=== PATIENT | female | born 1995 | race Caucasian/White ===

== ENCOUNTER → 2020-10-25 | Outpatient (REF) | payer OTHER ==
[2020-10-25 13:27] LABS: HEMATOCRIT 44.3 % (36.0-47.0); HEMOGLOBIN 14.2 g/dl (12.0-15.5); MEAN CORPUSCULAR HEMOGLOBIN 27.8 pg (27.0-33.0); MEAN CORPUSCULAR HGB CONC 32.1 g/dl (32.0-36.5); MEAN CORPUSCULAR VOLUME 86.9 fl (80.0-96.0); PLATELET COUNT, AUTOMATED 358 10^3/uL (150-450); WHITE BLOOD COUNT 8.7 10^3/uL (4.0-10.0)
[2020-10-25 13:57] LABS: GLUCOSE CHALLENGE TEST 1 HOUR 98 MG/DL (LESS THAN 140)
[2020-10-25 14:49] LABS: CHLAMYDIA DNA AMPLIFICATION NEGATIVE (NEGATIVE); GC DNA AMPLIFICATION NEGATIVE (NEGATIVE); HEPATITIS C VIRUS ABY INDEX < 0.0 INDEX (<0.8)
[2020-10-25 14:50] LABS: HIV 1&2 SCREEN CENTAUR NEGATIVE (NEGATIVE)
[2020-10-25 15:36] LABS: HEMOGLOBIN A1c 4.8 %
== END ==
LOC: M PLALAB 08:50
PROVIDERS: ATTEND Advanced Practice Midwife
DX: Z36.89 Encounter for other specified antenatal screening (principal); Z3A.09 9 weeks gestation of pregnancy

== ENCOUNTER → 2020-11-20 | Outpatient (REF) | payer OTHER | LOC: M PLALAB 09:33 | PROVIDERS: ATTEND Obstetrics & Gynecology | DX: O99.211 Obesity complicating pregnancy, first trimester (principal); E66.9 Obesity, unspecified | CPT/HCPCS: 87086; G0463 ==

== ENCOUNTER → 2021-01-04 | Outpatient (CLI) | payer OTHER ==
--- NOTE | 2021-01-04 10:38 | REP ---
INDICATION: ANATOMY. COMPARISON: None. TECHNIQUE: Transabdominal obstetric sonography. FINDINGS: Scanning through the gravid uterus demonstrates a viable single intrauterine gestation in breech lie. motion is observed and heart rate is recorded at 163 beats per minute. A posterior placenta is seen, grade 1, without evidence of placenta previa. Closed cervical length is measured at 3.9 cm transabdominally. No extrauterine abnormality is observed. Amniotic fluid is subjectively normal. No abnormality is observed. The following anatomic structures are less than optimally seen due to position: Face and profile, kidneys, spine. The following additional anatomic structures are identified and felt to be unremarkable: cranium and intracranial contents, nose and lips, four-chamber heart with left and right ventricular outflow tract views, diaphragm, left-sided stomach, abdominal wall cord insertion, urinary bladder, upper and lower extremities, three-vessel cord.. Biometry chart: BPD 4.6 cm, 20 weeks 0 days Head circumference 17.2 cm, 19 weeks 5 days Abdominal circumference 15.1 cm, 20 weeks 2 days Femur length 2.9 cm, 18 weeks 6 days Humeral length 2.9 cm, 19 weeks 2 days HC AC ratio normal 1.14 Cephalic index normal 0.75 Estimated weight 307 g, 0 lb 10 oz, 18th percentile for 20 weeks 2 days IMPRESSION: Viable single intrauterine gestation at 19 weeks 5 days by today's composite sonographic criteria. MARTA by today's sonography May 26, 2021. No complication identified. Expected gestational age estimate based on known MARTA of May 22, 2021 is 20 weeks 2 days. spine face profile, and kidneys less than optimally seen. <Electronically signed by David Mcfarlane > 01/04/21 [id number]
== END ==
LOC: M WHC 08:30
PROVIDERS: ATTEND Obstetrics & Gynecology
DX: Z36.89 Encounter for other specified antenatal screening (principal); Z3A.20 20 weeks gestation of pregnancy

== ENCOUNTER → 2021-01-24 | Outpatient (REF) | payer OTHER | LOC: M PLALAB 11:50 | PROVIDERS: ATTEND Obstetrics & Gynecology | DX: Z34.82 Encounter for supervision of other normal pregnancy, second trimester (principal); Z3A.23 23 weeks gestation of pregnancy ==

== ENCOUNTER → 2021-02-07 | Outpatient (CLI) | payer OTHER ==
--- NOTE | 2021-02-07 14:47 | REP ---
INDICATION: F/U ANATOMY COMPARISON: 01/04/2021 TECHNIQUE: Transabdominal obstetrical ultrasound with color Doppler evaluation. FINDINGS: Examination demonstrates a single live intrauterine in cephalic posterior presentation. motion is identified by technologist. Placenta is noted and grade 1 without evidence for placenta previa or abruption. Amniotic fluid volume is normal. Cervix measures 3.7 cm in length and appears closed.. Selected gestational age: 25 weeks 1 day with MARTA 05/22/2021. Gestational age by current measurements 25 weeks 1 day with MARTA 05/22/2021. FHR equals 160 beats per minute. Estimated weight 759 grams (34thpercentile). Anatomical assessment demonstrates normal structures including cranium, choroid plexus, cavum, cerebellum/posterior fossa, lungs, four-chamber heart/ventricular outflow tracts, diaphragm, stomach, cord insertion/three-vessel cord, kidneys/bladder, spine, and extremities. Continued limited evaluation of the facial features. Remainder of the anatomical assessment is essentially complete and normal. IMPRESSION: Single live intrauterine in cephalic presentation demonstrating appropriate estimated weight and growth. Continued limited evaluation of the facial profile. Remainder of the anatomical assessment appears complete and normal. <Electronically signed by Martin Downs > 02/07/21 [id number]
== END ==
LOC: M WHC 13:33
PROVIDERS: ATTEND Obstetrics & Gynecology
DX: Z36.2 Encounter for other antenatal screening follow-up (principal); Z3A.25 25 weeks gestation of pregnancy

== ENCOUNTER → 2021-02-22 | Outpatient (CLI) | payer OTHER ==
[2021-02-22 17:12] LABS: HEMATOCRIT 38.9 % (36.0-47.0); HEMOGLOBIN 12.7 g/dl (12.0-15.5); MEAN CORPUSCULAR HEMOGLOBIN 28.8 pg (27.0-33.0); MEAN CORPUSCULAR HGB CONC 32.6 g/dl (32.0-36.5); MEAN CORPUSCULAR VOLUME 88.2 fl (80.0-96.0); PLATELET COUNT, AUTOMATED 362 10^3/uL (150-450); RED BLOOD COUNT 4.41 10^6/uL (4.00-5.40); WHITE BLOOD COUNT 12.1 10^3/uL (4.0-10.0)
== END ==
LOC: M PLALAB 13:34
PROVIDERS: ATTEND Obstetrics & Gynecology
DX: Z34.82 Encounter for supervision of other normal pregnancy, second trimester (principal); Z3A.23 23 weeks gestation of pregnancy
CPT/HCPCS: 36415; 82950; 85027; G0463

== ENCOUNTER → 2021-03-11 | Outpatient (CLI) | payer OTHER ==
--- NOTE | 2021-03-13 08:48 | REP ---
INDICATION: F/U ANATOMY COMPARISON: None. TECHNIQUE: Transabdominal obstetrical ultrasound with color Doppler evaluation. FINDINGS: Examination demonstrates a single live intrauterine in cephalic presentation. motion is identified by technologist. Placenta is noted posterior and grade 2 without evidence for placenta previa or abruption. Amniotic fluid volume is normal. Cervix measures 4.4 cm in length and appears closed.. Selected gestational age: 29 weeks 5 days with MARTA 05/22/2021. Gestational age by current measurements 30 weeks 5 days with MARTA 05/15/2021. FHR equals 160 beats per minute. Estimated weight 1568 grams (62ndpercentile). HOMA: 13.9 cm Umbilical artery SD ratio: 2.35 Anatomical assessment is limited due to positioning. IMPRESSION: Single live intrauterine in cephalic presentation demonstrating appropriate interval growth. While no gross abnormalities are identified, images of the face are again limited due to positioning. <Electronically signed by Martin Downs > 03/13/21 0870
== END ==
LOC: M WHC 14:32
PROVIDERS: ATTEND Advanced Practice Midwife
DX: Z34.82 Encounter for supervision of other normal pregnancy, second trimester (principal); Z36.89 Encounter for other specified antenatal screening; Z3A.29 29 weeks gestation of pregnancy

== ENCOUNTER → 2021-03-27 | Outpatient (CLI) | payer OTHER | LOC: M LAB 07:53 | PROVIDERS: ATTEND Obstetrics & Gynecology | DX: Z34.82 Encounter for supervision of other normal pregnancy, second trimester (principal) ==

== ENCOUNTER → 2021-04-23 | Outpatient (REF) | payer OTHER | LOC: M LAB REF 13:05 | PROVIDERS: ATTEND Specialist | DX: Z34.83 Encounter for supervision of other normal pregnancy, third trimester (principal) ==

== ENCOUNTER 2021-05-18 02:46 | Inpatient (IN) | payer OTHER ==
[2021-05-18] VITALS (34 sets, daily range): BP systolic 116–176; BP diastolic 56–102
[2021-05-18] MEDS ORDERED: LACTATED RINGER'S 1000 ML IV STA (03:42)
[2021-05-18] MEDS ORDERED: LIDOCAINE 1% MDV 20ML VIAL INFIL PRN (03:45)
[2021-05-18] MEDS ORDERED: OXYTOCIN DRIP 30 UNITS in IV 1 EA IV PRN (03:45)
--- OUTSIDE RECORDS SUMMARY | 2021-05-18 03:47 | CCD ---
Author Author [facility] Organization [facility] Address Unknown Phone Unavailable Care Team Providers Care Vp Lab Name Role Phone Jersey Bauer Unavailable PROBLEMS Type Condition ICD9-CM Code [id number] Code Onset Dates Condition S tatus W/U Status Risk SNOMED Code Notes Problem Obesity (BMI 30.0-34.9) E66.9 Active confirmed [id number] Problem Obesity E66.9 Active confirmed 804497218 Problem Supervision of other normal Z34.80 Ac tive confirm 467770640 Problem Obesity complicating in first trimester O99.211 Active confirmed Problem Obesity complicating in second trimester O99.212 Active confirmed [id number] ALLERGIES No Known Allergies ENCOUNTERS from 1997 to 2021-04-27 Encounter Location Date Provider Diagnosis [facility] [address] [place] [address] [place] [address] Apr, Jersey Bauer Encounter for superv ision of other normal in third trimester Z34.83 and 35 weeks gestation of Z3A.35 IMMUNIZATIONS Vaccine Route Administration Date Status TDAP 0.5mL Boostrix IM Intramuscular Apr 04, 2021 Administere d SOCIAL HISTORY Tobacco Use: Social History Observation Description Date Details (start date - stop date) Never Smoker Sex Assigned At : Social History Observation Description Sex Assigned At Unknown Alcohol Screening: Question Answer Notes Did you have a drink containing alcohol in the past year? No Points 0 Interpretation Negative Tobacco Use: Question Answer Notes Are you a: never smoker former vaper REASON FOR REFERRAL No Information VITAL SIGNS Weight 204.4 lbs Apr, Height 64 in Apr, BMI 35.085 kg/m2 Apr, Blood pressure systolic 122 mm Hg Apr, Blood pressure diastolic 72 mm Hg Apr, MEDICATIONS Medication SIG (Take, Route, Frequency, Duration) Notes Start Da te End Date Status 28-0.8 MG 1 tablet Orally Once a day Active PROCEDURES No Information RESULTS Component Value Reference Range GROUP B STREP CULTURE Reviewed date:04/26/2021 06:57:17 Interpretation: Performing Lab:[facility], [facility] [id number] , ,[id number] REASON FOR VISIT 2 WK PN MEDICAL (GENERAL) HISTORY Type Description Date Medical History activity induced asthma Hospitalization History rsv 1997 Goals Section No Information Health Concerns No Information MEDICAL EQUIPMENT No Information MENTAL STATUS No Information FUNCTIONAL STATUS No Information ASSESSMENTS Encounter Date Diagnosis Assessment Notes Treatment Notes Treatm ent Clinical Notes Apr, Encounter for supervision of other normal in third trimester (ICD-10 - Z34.83) Apr, 35 weeks gestation of (ICD-10 - Z3A.35 ) PLAN OF TREATMENT Next Appt Details Provider Name:Jersey Castro Juancarlos, 2021-04-29 09:45:00 AM, [address] [facility], , [place], [address], Insurance Providers Payer Name Payer Address Payer Phone Insured Name Patient Relati onship to Insured Coverage Start Date Coverage End Date [facility] [employer] [address] [place] [id number] SAM MARMOLEJO
--- OUTSIDE RECORDS SUMMARY | 2021-05-18 03:47 | CCD ---
Author Author [facility] Organization [facility] Address Unknown Phone Unavailable Care Team Providers Care Rn Hemodialysis Name Role Phone Laurel Bharti Unavailable PROBLEMS Type Condition ICD9-CM Code [id number]-WK Code Onset Dates Condition S tatus W/U Status Risk SNOMED Code Notes Problem Obesity (BMI 30.0-34.9) E66.9 Active confirmed [id number] Problem Obesity E66.9 Active confirmed 876812641 Problem Supervision of other normal Z34.80 Ac tive confirm 924119629 Problem Obesity complicating in first trimester O99.211 Active confirmed Problem Obesity complicating in second trimester O99.212 Active confirmed 703050529815 ALLERGIES No Known Allergies ENCOUNTERS from 1997 to 2021-04-05 Encounter Location Date Provider Diagnosis [facility] [address] [place] [address] [place] [address] Mar, Bharti Barragan Encounter for sup ervision of normal first in third trimester Z34.03 ; 33 weeks gestation of Z3A.33 and Encounter for immunization Z23 IMMUNIZATIONS Vaccine Route Administration Date Status TDAP [...] FOR REFERRAL No Information VITAL SIGNS Weight 202.6 lbs Mar, Height 64 in Mar, BMI 34.776 kg/m2 Mar, Blood pressure systolic 118 mm Hg Mar, Blood pressure diastolic 68 mm Hg Mar, MEDICATIONS Medication SIG (Take, Route, Frequency, Duration) Notes Start Da te End Date Status 28-0.8 MG 1 tablet Orally Once a day Active PROCEDURES from 1997 to 2021-04-05 Procedure Date Ordered Result Body Site Imm: Boostrix 0.5mL IM TDAP 2021-04-04 N/A RESULTS No Results REASON FOR VISIT 2 WK PN MEDICAL (GENERAL) HISTORY Type Description Date Medical History activity induced asthma Hospitalization History rsv 1997 Goals Section No Information Health Concerns No Information MEDICAL EQUIPMENT No Information MENTAL STATUS No Information FUNCTIONAL STATUS No Information ASSESSMENTS Encounter Date Diagnosis Assessment Notes Treatment Notes Treatm ent Clinical Notes Mar, 33 weeks gestation of (ICD-10 - Z3A.33 ) Mar, Encounter for supervision of normal first in third trimester (ICD-10 - Z34.03) Mar, Encounter for immunization (ICD-10 - Z23) PLAN OF TREATMENT Next Appt Details 2 Weeks Reason:- Routine follow up Provider Name:Jersey Bauer, 2021-04-22 01:00:00 PM, [address] [facility], , [place], [address], Follow Up:2 Weeks- Routine follow up Insurance Providers Payer Name Payer Address Payer Phone Insured Name Patient Relati onship to Insured Coverage Start Date Coverage End Date [facility] [employer] [address] [place] [id number] SAM MARMOLEJO
--- OUTSIDE RECORDS SUMMARY | 2021-05-18 03:47 | CCD ---
Author Author [facility] Organization [facility] Address Unknown Phone Unavailable Care Team Providers Care Care Transitions Manager Name Role Phone Bharti Barragan Unavailable PROBLEMS Type Condition ICD9-CM Code AIB78-EM Code Onset Dates Condition S tatus W/U Status Risk SNOMED Code Notes Problem Supervision of other normal Z34.80 Ac tive confirm [id number] Problem Obesity complicating in third trimester O99.213 Active confirmed Problem Obesity, unspecified E66.9 Active confirmed 304837156 Problem Obesity complicating in first trimester O99.211 Active confirmed Problem Obesity complicating in second trimester O99.212 Active confirmed 422553820195 Problem Obesity (BMI 30.0-34.9) E66.9 Active confirmed 617969860561140 Problem Obesity E66.9 Active confirmed 659433645 ALLERGIES No Known Allergies ENCOUNTERS from 1997 to 2021-05-15 Encounter Location Date Provider Diagnosis [facility] [address] [place] [address] [place] [address] Apr, Bharti Cardenasgera Obesity complicat ing in third trimester O99.213 ; Obesity, unspecified E66.9 and 38 weeks gestation of Z3A.38 IMMUNIZATIONS Vaccine Route Administration Date Status TDAP [...] FOR REFERRAL No Information VITAL SIGNS Weight 209.2 lbs Apr, Height 64 in Apr, BMI 35.909 kg/m2 Apr, Blood pressure systolic 130 mm Hg Apr, Blood pressure diastolic 78 mm Hg Apr, MEDICATIONS Medication SIG (Take, Route, Frequency, Duration) Notes Start Da te End Date Status 28-0.8 MG 1 tablet Orally Once a day Active PROCEDURES No Information RESULTS No Results REASON FOR VISIT 1 WK PN MEDICAL (GENERAL) HISTORY Type Description Date Medical History activity induced asthma Hospitalization History rsv 1997 Goals Section No Information Health Concerns No Information MEDICAL EQUIPMENT No Information MENTAL STATUS No Information FUNCTIONAL STATUS No Information ASSESSMENTS Encounter Date Diagnosis Assessment Notes Treatment Notes Treatm ent Clinical Notes Apr, Obesity complicating pregnan cy in third trimester (ICD-10 - O99.213) Apr, Obesity, unspecified (ICD-10 - E66.9) Apr, 38 weeks gestation of (ICD-10 - Z3A.38 ) PLAN OF TREATMENT Next Appt Details 1 Week Reason:- Routine follow up Provider Name:Jennifer Cutler, 6 01:00:00 PM, [address] [place] [address] , [place], [address], Provider Name:Cira Perez, 2021-05-28 0 1:40:00 PM, [address] [place] [address] , [place], [address], Follow Up:1 Week- Routine follow up Insurance Providers Payer Name Payer Address Payer Phone Insured Name Patient Relati onship to Insured Coverage Start Date Coverage End Date [facility] [employer] [address] [place] [id number] SAM MARMOLEJO
--- OUTSIDE RECORDS SUMMARY | 2021-05-18 03:47 | CCD ---
Author Author [facility] Organization [facility] Address Unknown Phone Unavailable Care Team Providers Care Feedmobile Driver Name Role Phone Dottie Garza Unavailable PROBLEMS Type Condition ICD9-CM Code QWL34-UE Code Onset Dates Condition S tatus W/U Status Risk SNOMED Code Notes Problem Obesity (BMI 30.0-34.9) E66.9 Active confirmed [id number] Problem Obesity E66.9 Active confirmed 577841157 Problem Supervision of other normal Z34.80 Ac tive confirm 198518662 Problem Obesity complicating in first trimester O99.211 Active confirmed Problem Obesity complicating in second trimester O99.212 Active confirmed 400387498806 ALLERGIES No Known Allergies ENCOUNTERS from 1997 to 2021-04-08 Encounter Location Date Provider Diagnosis [facility] [address] [facility] [phone] [place] [address] Mar, Dottie Garza Encounter for superv ision of other normal in second trimester Z34.82 IMMUNIZATIONS Vaccine Route Administration Date Status TDAP [...] FOR REFERRAL No Information VITAL SIGNS Weight 198.6 lbs Mar, Height 64 in Mar, BMI 34.09 kg/m2 Mar, Blood pressure systolic 110 mm Hg Mar, Blood pressure diastolic 76 mm Hg Mar, MEDICATIONS Medication SIG (Take, Route, Frequency, Duration) Notes Start Da te End Date Status 28-0.8 MG 1 tablet Orally Once a day Active PROCEDURES No Information RESULTS No Results REASON FOR VISIT 4 WK PN MEDICAL (GENERAL) HISTORY Type Description Date Medical History activity induced asthma Hospitalization History rsv 1997 Goals Section No Information Health Concerns No Information MEDICAL EQUIPMENT No Information MENTAL STATUS No Information FUNCTIONAL STATUS No Information ASSESSMENTS Encounter Date Diagnosis Assessment Notes Treatment Notes Treatm ent Clinical Notes Mar, Encounter for supervision of other normal in second trimester (ICD-10 - Z34.82) PLAN OF TREATMENT Treatment Notes Test Name Order Date Glucose ASOTN 3 HR Gestational 2021-03-20 Next Appt Details 2 Weeks Reason:pn Provider Name:Jersey Bauer, 2021-04-22 01:00:00 PM, [address] [facility], , [place], [address], Follow Up:2 Weekspn Insurance Providers Payer Name Payer Address Payer Phone Insured Name Patient Relati onship to Insured Coverage Start Date Coverage End Date [facility] [employer] [address] [place] [id number] [place] MARMOLE[place]
--- OUTSIDE RECORDS SUMMARY | 2021-05-18 03:47 | CCD ---
Author Author [facility] Address Unknown Phone Unavailable Support Name Relationship Address Phone ST Next Of Kin Unknown Unavailable UE Next Of Kin Unknown Unavailable SAM MARMOLEJO Next Of [place] [address] [place] [address] SAM MARMOLEJO ECON [address] [place] [address] Unavailable Re-disclosure Warning The records that you are about to access may contain information from federally-assisted alcohol or drug abuse programs. If such information is present, then the following federally mandated warning applies: This information has been disclosed to you from records protected by federal confidentiality rules (42 CFR part 2). The federal rules prohibit you from making any further disclosure of this information unless further disclosure is expressly permitted by the written consent of the person to whom it pertains or as otherwise permitted by 42 CFR part 2. A general authorization for the release of medical or other information is NOT sufficient for this purpose. The Federal rules restrict any use of the information to criminally investigate or prosecute any alcohol or drug abuse patient.The records that you are about to access may contain highly sensitive health information, the redisclosure of which is protected by Article 27-F of the [facility] Public Health law. If you continue you may have access to information: Regarding HIV / AIDS; Provided by facilities licensed or operated by the [facility] Office of Mental Health; or Provided by the [facility] Office for People With Developmental Disabilities. If such information is present, then the following [facility] mandated warning applies: This information has been disclosed to you from confidential records which are protected by state law. State law prohibits you from making any further disclosure of this information without the specific written consent of the person to whom it pertains, or as otherwise permitted by law. Any unauthorized further disclosure in violation of state law may result in a fine or prison sentence or both. A general authorization for the release of medical or other information is NOT sufficient authorization for further disc losure. Encounters Encounter Providers Location Date Indications Data Source(s ) ([facility]) [facility] [address] [place] [address] 05/14/2021 12:00:00 AM EST eCW1 ([facility]) (WC EST[facility]) [facility] [address] [place] [address] 05/07/2021 12:00:00 AM EST eCW1 ([facility]) ([facility]) [facility] [address] [place] [address] 04/30/2021 12:00:00 AM EST eCW1 ([facility]) (WC EST[facility]) [facility] [address] [place] [address] 04/22/2021 12:00:00 AM EST eCW1 ([facility]) (WC EST[facility]) [facility] [address] [place] [address] 04/04/2021 12:00:00 AM EDT eCW1 ([facility]) (WC EST[facility]) [facility] [address] [place] [address] 03/20/2021 12:00:00 AM EDT eCW1 ([facility]) (WC EST[facility]) [facility] [address] [place] [address] 02/22/2021 12:00:00 AM EDT eCW1 ([facility]) ([facility] EST[facility]) [facility] [address] [place] [address] 01/24/2021 12:00:00 AM EDT eCW1 ([facility]) (WC EST[facility]) [facility] [address] [place] [address] 12/26/2020 12:00:00 AM EDT eCW1 ([facility]) (WC EST[facility]) [facility] [address] [place] [address] 11/20/2020 12:00:00 AM EDT eCW1 ([facility]) (WC NEWOB) [facility] New OB Visit [address] [place] [address] 10/23/2020 12:00:00 AM EDT eCW1 ([facility]) Immunizations Vaccine Date Status Description Data Source(s) Tdap 04/04/2021 03:30:00 PM EDT completed e CW1 ([facility]) Tdap 04/04/2021 03:30:00 PM EDT completed e CW1 ([facility]) Tdap 04/04/2021 03:30:00 PM EDT completed e CW1 ([facility]) Tdap 04/04/2021 03:30:00 PM EDT completed e CW1 ([facility]) Tdap 04/04/2021 03:30:00 PM EDT completed e CW1 ([facility]) Tdap 04/04/2021 03:30:00 PM EDT completed e CW1 ([facility]) Medications No Information Insurance Providers Payer name Policy type / Coverage type Policy ID Covered constitution party ID Covered constitution party's relationship to stevenson Policy Stevenson Plan Information [employer] [id number] [place] [id number] [employer] - 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 [id number] [employer] - O/P [id number] Problems, Conditions, and Diagnoses Code Display Name Description Problem Type Effective Dates Data Source(s) E66.9 Obesity Obesity, unspecified Problem 05/15/2021 12:0 0:00 AM EST eCW1 ([facility]) O99.213 Obesity complicating , third tr imester Obesity complicating in third trimester Problem 05/14/2021 12:00:00 AM EST eCW1 ([facility]) E66.9 [id number] Obesity Problem 12/26/2020 12:00:00 AM ED T eCW1 ([facility]) E66.9 [id number] Obesity (BMI 30.0-34.9) Problem 0 12/26/2020 12:00:00 AM EDT eCW1 ([facility]) O99.212 [id number] Obesity complicating in second trimester Problem 12/26/2020 12:00:00 AM EDT eCW1 ([facility]) O99.211 Obesity complicating , first tr imester Obesity complicating in first trimester Problem 10/23/2020 12:00:00 AM EDT eCW1 ([facility]) Z34.80 care Supervision of other normal P roblem 10/22/2020 12:00:00 AM EDT eCW1 ([facility]) Surgeries/Procedures Procedure Description Date Indications Data Source(s) TDAP VACCINE 7/> YR IM 04/04/2021 12:00:00 AM EDT eCW1 ([facility]) Results ID Date Data Source GROUP B STREP CULTURE 04/23/2021 12:00:00 AM EST eCW1 ([facility]) Name Value Range Interpretation Code Description Data Radha rce(s) Supporting Document(s) GROUP B STREP CULTURE eCW1 ([facility]) ID Date Data Source URINE CULTURE 11/20/2020 12:00:00 AM EDT eCW1 ([facility]) Name Value Range Interpretation Code Description Data Radha rce(s) Supporting Document(s) URINE CULTURE eCW1 ([facility]) ID Date Data Source HBSAG 10/25/2020 12:00:00 AM EDT eCW1 ([facility]) Name Value Range Interpretation Code Description Data Radha rce(s) Supporting Document(s) NEGATIVE NEGATIVE HBsAg eCW1 ([facility]) ID Date Data Source [id number] 10/25/2020 12:00:00 AM EDT eCW1 ([facility]) Name Value Range Interpretation Code Description Data Radha rce(s) Supporting Document(s) Hemoglobin A1c/Hemoglobin.total in Blood 4.8 HEMOGLOBIN A1c eCW1 ([facility]) ID Date Data Source Glucose Challenge Test 1 Hour 10/25/2020 12:00:00 AM EDT eCW 1 ([facility]) Name Value Range Interpretation Code Description Data Radha rce(s) Supporting Document(s) 98 LESS THAN 140 GLUCOSE CHALLENGE TEST 1 HOUR eCW1 ([facility]) ID Date Data Source HEPATITIS C ANTIBODY INDEX 10/25/2020 12:00:00 AM EDT eCW1 ( [facility]) Name Value Range Interpretation Code Description Data Radha rce(s) Supporting Document(s) < 0.0 <0.8 HEPATITIS C VIRUS CHONG IND EX eCW1 ([facility]) ID Date Data Source RUBELLA IMMUNE STATUS IgG 10/25/2020 12:00:00 AM EDT eCW1 ([facility]) Name Value Range Interpretation Code Description Data Radha rce(s) Supporting Document(s) IMMUNE IMMUNE RUBELLA IgG QUALITATIVE eCW1 ( [facility]) ID Date Data Source SYPHILIS ANTIBODY (RPR SCREEN) 10/25/2020 12:00:00 AM EDT eC W1 ([facility]) Name Value Range Interpretation Code Description Data Radha rce(s) Supporting Document(s) NONREACTIVE NONREACTIVE SYPHILIS eCW1 ([facility]) ID Date Data Source [id number] 10/25/2020 12:00:00 AM EDT eCW1 ([facility]) Name Value Range Interpretation Code Description Data Radha rce(s) Supporting Document(s) HIV 1&2 ANTIBODY SCREEN eCW1 ( [facility]) ID Date Data Source CHLAMYDIA & GC DNA AMPLIFICAT 10/25/2020 12:00:00 AM EDT eCW 1 ([facility]) Name Value Range Interpretation Code Description Data Radha rce(s) Supporting Document(s) Chlamydia trachomatis rRNA [Presence] in Unspecified specimen by Probe and target amplification method NEGATIVE NEGATIVE CHLAMYDIA DNA AMPLIFICATION eCW1 ([facility]) ID Date Data Source CBC - Complete Blood Count 10/25/2020 12:00:00 AM EDT eCW1 ( [facility]) Name Value Range Interpretation Code Description Data Radha rce(s) Supporting Document(s) 8.7 4.0-10.0 WHITE BLOOD COUNT eCW1 ([facility]) 5.10 4.00-5.40 RED BLOOD COUNT eCW1 ([facility]) 14.2 12.0-15.5 HEMOGLOBIN eCW1 ([facility]) 44.3 36.0-47.0 HEMATOCRIT eCW1 ([facility]) 32.1 32.0-36.5 MEAN CORPUSCULAR HGB CONC eCW1 ([facility]) 86.9 80.0-96.0 MEAN CORPUSCULAR VOLUME e CW1 ([facility]) 27.8 27.0-33.0 MEAN CORPUSCULAR HEMOGLOB IN eCW1 ([facility]) 358 150-450 PLATELET COUNT, AUTOMATED eCW1 ([facility]) 12.6 11.5-14.5 RED CELL DISTRIBUTION WID TH eCW1 ([facility]) ID Date Data Source Type and Screen Prenatal1 10/25/2020 12:00:00 AM EDT eCW1 ([facility]) Name Value Range Interpretation Code Description Data Radha rce(s) Supporting Document(s) NEGATIVE AB SCREEN PNP1 GEL (VIS) eCW1 ([facility]) Procedure Social History Code Duration Value Status Description Data Source(s ) Smoking 05/13/2021 12:00:00 AM EST Never Smoker completed Never S moker eCW1 ([facility]) Smoking 05/13/2021 12:00:00 AM EST Never Smoker completed Never S moker eCW1 ([facility]) Smoking 05/13/2021 12:00:00 AM EST Never Smoker completed Never S moker eCW1 ([facility]) Smoking 04/26/2021 12:00:00 AM EST Never Smoker completed Never S moker eCW1 ([facility]) Smoking 04/04/2021 12:00:00 AM EDT Never Smoker completed Never S moker eCW1 ([facility]) Smoking 04/04/2021 12:00:00 AM EDT Never Smoker completed Never S moker eCW1 ([facility]) Smoking 02/21/2021 12:00:00 AM EDT Never Smoker completed Never S moker eCW1 ([facility]) Smoking 01/23/2021 12:00:00 AM EDT Never Smoker completed Never S moker eCW1 ([facility]) Smoking 12/26/2020 12:00:00 AM EDT Never Smoker completed Never S moker eCW1 ([facility]) Smoking 11/20/2020 12:00:00 AM EDT Never Smoker completed Never S moker eCW1 ([facility]) Smoking 10/23/2020 12:00:00 AM EDT Never Smoker completed Never S moker eCW1 ([facility]) Vital Signs ID Date Data Source UNK Name Value Range Interpretation Code Description Data Source(s) Body weight 209.2 [lb_av] 209.2 [lb_av] eCW1 ([facility]) Body height 64 [in_i] 64 [in_i] eCW1 ([facility]) Body mass index (BMI) [Ratio] 35.909 kg/m2 35.9 09 kg/m2 eCW1 ([facility]) Systolic blood pressure 130 mm[Hg] 130 mm[Hg] e CW1 ([facility]) Diastolic blood pressure 78 mm[Hg] 78 mm[Hg] eCW1 ([facility]) Body weight 206 [lb_av] 206 [lb_av] eCW1 ([facility]) Body height 64 [in_i] 64 [in_i] eCW1 ([facility]) Body mass index (BMI) [Ratio] 35.36 kg/m2 35.36 kg/m2 eCW1 ([facility]) Systolic blood pressure 128 mm[Hg] 128 mm[Hg] e CW1 ([facility]) Diastolic blood pressure 86 mm[Hg] 86 mm[Hg] eCW1 ([facility]) Body weight 204.8 [lb_av] 204.8 [lb_av] eCW1 ([facility]) Body height 64 [in_i] 64 [in_i] eCW1 ([facility]) Body mass index (BMI) [Ratio] 35.154 kg/m2 35.1 54 kg/m2 eCW1 ([facility]) Systolic blood pressure 118 mm[Hg] 118 mm[Hg] e CW1 ([facility]) Diastolic blood pressure 74 mm[Hg] 74 mm[Hg] eCW1 ([facility]) Body weight 204.4 [lb_av] 204.4 [lb_av] eCW1 ([facility]) Body height 64 [in_i] 64 [in_i] eCW1 ([facility]) Body mass index (BMI) [Ratio] 35.085 kg/m2 35.0 85 kg/m2 eCW1 ([facility]) Systolic blood pressure 122 mm[Hg] 122 mm[Hg] e CW1 ([facility]) Diastolic blood pressure 72 mm[Hg] 72 mm[Hg] eCW1 ([facility]) Body weight 202.6 [lb_av] 202.6 [lb_av] eCW1 ([facility]) Body height 64 [in_i] 64 [in_i] eCW1 ([facility]) Body mass index (BMI) [Ratio] 34.776 kg/m2 34.7 76 kg/m2 eCW1 ([facility]) Systolic blood pressure 118 mm[Hg] 118 mm[Hg] e CW1 ([facility]) Diastolic blood pressure 68 mm[Hg] 68 mm[Hg] eCW1 ([facility]) Body weight 198.6 [lb_av] 198.6 [lb_av] eCW1 ([facility]) Body height 64 [in_i] 64 [in_i] eCW1 ([facility]) Body mass index (BMI) [Ratio] 34.09 kg/m2 34.09 kg/m2 eCW1 ([facility]) Systolic blood pressure 110 mm[Hg] 110 mm[Hg] e CW1 ([facility]) Diastolic blood pressure 76 mm[Hg] 76 mm[Hg] eCW1 ([facility]) Body weight 199.2 [lb_av] 199.2 [lb_av] eCW1 ([facility]) Body weight 90.36 kg 90.36 kg eCW1 ([facility]) Body height 64 [in_i] 64 [in_i] eCW1 ([facility]) Body mass index (BMI) [Ratio] 34.193 kg/m2 34.1 93 kg/m2 eCW1 ([facility]) Systolic blood pressure 122 mm[Hg] 122 mm[Hg] e CW1 ([facility]) Diastolic blood pressure 84 mm[Hg] 84 mm[Hg] eCW1 ([facility]) Body weight 196.4 [lb_av] 196.4 [lb_av] eCW1 ([facility]) Body height 64 [in_i] 64 [in_i] eCW1 ([facility]) Body mass index (BMI) [Ratio] 33.71 kg/m2 33.71 kg/m2 eCW1 ([facility]) Systolic blood pressure 110 mm[Hg] 110 mm[Hg] e CW1 ([facility]) Diastolic blood pressure 68 mm[Hg] 68 mm[Hg] eCW1 ([facility]) Body weight 198.6 [lb_av] 198.6 [lb_av] eCW1 ([facility]) Body height 64 [in_i] 64 [in_i] eCW1 ([facility]) Body mass index (BMI) [Ratio] 34.09 kg/m2 34.09 kg/m2 eCW1 ([facility]) Systolic blood pressure 120 mm[Hg] 120 mm[Hg] e CW1 ([facility]) Diastolic blood pressure 80 mm[Hg] 80 mm[Hg] eCW1 ([facility]) Body weight 200.2 [lb_av] 200.2 [lb_av] eCW1 ([facility]) Body height 64 [in_i] 64 [in_i] eCW1 ([facility]) Body mass index (BMI) [Ratio] 34.36 kg/m2 34.36 kg/m2 eCW1 ([facility]) Systolic blood pressure 124 mm[Hg] 124 mm[Hg] e CW1 ([facility]) Diastolic blood pressure 78 mm[Hg] 78 mm[Hg] W1 ([facility]) Body weight 202 [lb_av] 202 [lb_av] eCW1 ([facility]) Body weight 91.[address] [facility] ([facility]) Body height 64 [in_i] 64 [in_i] W1 ([facility]) Body mass index (BMI) [Ratio] 34.673 kg/m2 34.6 73 kg/m2 [facility] ([facility]) Systolic blood pressure 126 mm[Hg] 126 mm[Hg] e CW1 ([facility]) Diastolic blood pressure 86 mm[Hg] 86 mm[Hg] eCW1 ([facility])
--- OUTSIDE RECORDS SUMMARY | 2021-05-18 03:47 | CCD ---
Author Author [facility] Organization [facility] Address Unknown Phone Unavailable Care Team Providers Care Seismic Interpreter Name Role Phone JuancarlosJersey Unavailable PROBLEMS Type Condition ICD9-CM Code [id number] Code Onset Dates Condition S tatus W/U Status Risk SNOMED Code Notes Problem Supervision of other normal Z34.80 Ac tive confirm [id number] Problem Obesity complicating in third trimester O99.213 Active confirmed Problem Obesity, unspecified E66.9 Active confirmed [id number] Problem Obesity complicating in first trimester O99.211 Active confirmed Problem Obesity complicating in second trimester O99.212 Active confirmed [id number] Problem Obesity (BMI 30.0-34.9) E66.9 Active confirmed [id number] Problem Obesity E66.9 Active confirmed [id number] ALLERGIES No Known Allergies ENCOUNTERS from 1997 to 2021-05-17 Encounter Location Date Provider Diagnosis [facility] [address] [place] [address] [place] [address] 16 Apr, 2021 Jersey Bauer Encounter for superv ision of normal in multigravida in third trimester Z34.83 and 36 weeks gestation of Z3A.36 IMMUNIZATIONS Vaccine Route Administration Date Status TDAP [...] FOR REFERRAL No Information VITAL SIGNS Weight 204.8 lbs Apr, Height 64 in Apr, BMI 35.154 kg/m2 Apr, Blood pressure systolic 118 mm Hg Apr, Blood pressure diastolic 74 mm Hg Apr, MEDICATIONS Medication SIG (Take, [...] Treatment Notes Treatm ent Clinical Notes Apr, 36 weeks gestation of (ICD-10 - Z3A.36 ) Apr, Encounter for supervision of normal in multigravida in third trimester (ICD-10 - Z34.83) PLAN OF TREATMENT Next Appt Details Provider Name:Jennifer Cutler, 6 01:00:00 PM, [address] [place] [address] , [place], [address], Provider Name:Cira Perez, 2021-05-28 0 1:40:00 PM, [address] [place] [address] , [place], [address], Insurance Providers Payer Name Payer Address Payer Phone Insured Name Patient Relati onship to Insured Coverage Start Date Coverage End Date [facility] [employer] [id number] [place] [address] SAM MARMOLEJO
--- OUTSIDE RECORDS SUMMARY | 2021-05-18 03:47 | CCD ---
Author Author [facility] Organization [facility] Address Unknown Phone Unavailable Care Team Providers Care Tourist Agent Name Role Phone Cira Perez Unavailable PROBLEMS Type Condition ICD9-CM Code [id number] Code Onset Dates Condition S tatus W/U Status Risk SNOMED Code Notes Problem Obesity (BMI 30.0-34.9) E66.9 Active confirmed [id number] Problem Obesity E66.9 Active confirmed 856969619 Problem Supervision of other normal Z34.80 Ac tive confirm 044286391 Problem Obesity complicating in first trimester O99.211 Active confirmed Problem Obesity complicating in second trimester O99.212 Active confirmed [id number] ALLERGIES No Known Allergies ENCOUNTERS from 1997 to 2021-02-22 Encounter Location Date Provider Diagnosis [facility] [address] [place] [address] [place] [address] Feb, Cira Perez Encounter for superv ision of other normal in second trimester Z34.82 IMMUNIZATIONS No Information SOCIAL HISTORY Tobacco Use: Social History Observation [...] FOR REFERRAL No Information VITAL SIGNS Weight 199.2 lbs Feb, Weight-kg 90.36 kg Feb, Height 64 in Feb, BMI 34.193 kg/m2 Feb, Blood pressure systolic 122 mm Hg Feb, Blood pressure diastolic 84 mm Hg Feb, MEDICATIONS Medication SIG (Take, Route, Frequency, Duration) [...] Notes Treatment Notes Treatm ent Clinical Notes Feb, Encounter for supervision of other normal in second trimester (ICD-10 - Z34.82) PLAN OF TREATMENT Treatment Notes Test Name Order Date WW OBS FOLLOW UP OR REPEAT 2021-02-22 Next Appt Details 4 Weeks Reason: Provider Name:Dottie Garza, 2021-03-20 0 1:20:00 PM, [address] [facility], , [place], [address], Insurance Providers Payer Name Payer Address Payer Phone Insured Name Patient Relati onship to Insured Coverage Start Date Coverage End Date [facility] [employer] [id number] [place] [id number] SAM MARMOLEJO
--- OUTSIDE RECORDS SUMMARY | 2021-05-18 03:47 | CCD ---
Author Author [facility] Organization [facility] Address Unknown Phone Unavailable Care Team Providers Care Party Host/Hostess Name Role Phone [place] Unavailable PROBLEMS Type Condition ICD9-CM Code GOP45-EO Code Onset Dates Condition S tatus W/U Status Risk SNOMED Code Notes Problem Supervision of other normal Z34.80 Ac tive confirm 451929143 Problem Obesity complicating in third trimester O99.213 Active confirmed Problem Obesity, unspecified E66.9 Active confirmed 488765194 Problem Obesity complicating in first trimester O99.211 Active confirmed Problem Obesity complicating in second trimester O99.212 Active confirmed 341225447739 Problem Obesity (BMI 30.0-34.9) E66.9 Active confirmed [id number] Problem Obesity E66.9 Active confirmed [id number] ALLERGIES No Known Allergies ENCOUNTERS from 1997 to 2021-05-17 Encounter Location Date Provider Diagnosis [facility] [address] [place] [address] [place] [address] Apr, [place] Bauer Encounter for superv ision of normal first in third trimester Z34.03 and 37 weeks gestation of Z3A.37 IMMUNIZATIONS Vaccine Route Administration Date Status TDAP [...] FOR REFERRAL No Information VITAL SIGNS Weight 206 lbs Apr, Height 64 in Apr, BMI 35.36 kg/m2 Apr, Blood pressure systolic 128 mm Hg Apr, Blood pressure diastolic 86 mm Hg Apr, MEDICATIONS Medication SIG (Take, [...] Treatment Notes Treatm ent Clinical Notes Apr, 37 weeks gestation of (ICD-10 - Z3A.37 ) Apr, Encounter for supervision of normal first in third trimester (ICD-10 - Z34.03) PLAN OF TREATMENT Next Appt Details Provider Name:Jennifer Cutler, 6 01:00:00 PM, [address] [place] [address] , [place], [address], Provider Name:Cira Perez, 2021-05-28 0 1:40:00 PM, [address] [place] [address] , [place], [address], Insurance Providers Payer Name Payer Address Payer Phone Insured Name Patient Relati onship to Insured Coverage Start Date Coverage End Date [facility] [id number] [place]ISHA SH[place] [id number] [address]
--- NOTE | 2021-05-18 04:07 | HPEPDOC ---
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 BREAST: . ABDOMEN: Gravid and non-tender to touch. FETUS: Is vertex (VTX) by sterile vaginal examination (SVE), fetus is vertex (VTX) by Rebel. EFW 8# HEART RATE: Regular rate and rhythm. LUNGS: Clear to auscultation (CTA). EXTREMITIES: No edema. No clonus. Deep tendon reflexes (DTRs) + 2. Vital Signs/I&O Vital Signs Date Time Temp Pulse Resp B/P (MAP) Pulse Ox O2 Delivery O2 Flow Rate FiO2 05/18/21 03:45 97.5 18 Pertinent Laboratoy Data Blood Type: A+ RBC Antibody Screen: Negative HIV: Negative Hepatitis B: Negative Hepatitis C: Negative Rapid Plasma Reagin: Nonreactive Rubella: Immune Chlamydia/Gonorrhea: Negative Group B Streptococcus: Negative Glucose Tolerance Test: 133 (89/159/178/133. Early 1hr 98) Anatomy Ultrasound Ultrasound Date: Jan 04, 2021 Placenta Location: Posterior Normal Anatomy: Yes (sub optimal views face, profile, kidneys, spine) Placenta Previa: No Estimated Weight (grams): 307 (18%) Other Ultrasounds 10/23/2020 dating 9w2d 02/07/2021 f/u sono 759gm 34%, limited facial views 03/11/2021 f/u sono cephalic, 1568gm 62%. limited facial views Steroid Therapy Steroid Therapy: No Vaginal Examination Dilation: None Effacement: 50% Station: -2 Cervical Consistency: Medium Cervical Position: Posterior Presentation: Cephalic presentation Assessment Heart Rate (FHR): 145 Variability: Moderate Accelerations: Positive Decelerations: None Tocometer Contractions: Yes (rare) Duration: less than 60 seconds Strength: palpated as mild Assessment/Plan Assessment Becky is a 26-year-old (G)2 para (P)0-0-1-0 at 39+3 weeks by 9-week ultrasound. Presents to Labor and Delivery (L&D) with reports of spontaneously ruptured membranes, clear fluid 0030. Reports onset of cramping. Reports good movement. Plan Admit and orient. Instructional Material Director and consent. Diet: regular. Group B Streptococcus (GBS) negative. Labs and intravenous (IV) per unit protocol. Counseled on misoprostol, Pitocin and induction of labor (IOL). Lactated Ringers (LR): Bolus 500 mL, then saline lock. Plans to labor ad quentin Anticipate normal spontaneous delivery (). C-S as appropriate. Bharti Barragan CNM May 18, 2021 03:55
[2021-05-18] MEDS: miSOPROStol 50MCG 1/2 TABLET PO SCH ×3 (04:08→12:43)
[2021-05-18] MEDS ORDERED: hydrOXYzine 25 MG TAB PO PRN (04:10)
[2021-05-18 04:11] LABS: HEMATOCRIT 37.1 % (36.0-47.0); HEMOGLOBIN 12.2 g/dl (12.0-15.5); MEAN CORPUSCULAR HEMOGLOBIN 27.2 pg (27.0-33.0); MEAN CORPUSCULAR HGB CONC 32.9 g/dl (32.0-36.5); MEAN CORPUSCULAR VOLUME 82.6 fl (80.0-96.0); PLATELET COUNT, AUTOMATED 328 10^3/uL (150-450); RED BLOOD COUNT 4.49 10^6/uL (4.00-5.40); WHITE BLOOD COUNT 13.2 10^3/uL (4.0-10.0)
[2021-05-18] MEDS ORDERED: BUTORPHANOL 2 MG/ML INJ (J0595) IV ONE (12:05)
[2021-05-18] MEDS ORDERED: PROMETHAZINE INJ 25 MG/ML VIAL (J2550) IV ONE (12:05)
[2021-05-18] MEDS ORDERED: FENTANYL 2MCG/ML ROPIVACAINE 0.2% IN 0.9% NACL 100ML IVBAG As Ordered ONE (15:57)
[2021-05-18] MEDS: LR 1,000 ML IV SCH ×2 (16:14→18:51)
--- NOTE | 2021-05-18 16:14 | IPNPDOC ---
Text Note Date of Service The patient was seen on 05/18/21. NOTE S: Contractions becoming more uncomfortable. O: AVSS Appears uncomfortable Abd: NT, gravid FHT: Category one toco: regular, every 3-4 minutes moderate SVE: 1 cm/90%/-1 vtx A/P 26 yo G1 at 39 4/7 weeks with PROM, early labor Plan epidural for pain relief She has already received IV pain meds She has been on Misoprostol Plan Pitocin after epidural if needed VS,Fishbone, I+O VS, Fishbone, I+O Laboratory Tests 05/18/21 03:55 Vital Signs Date Time Temp Pulse Resp B/P (MAP) Pulse Ox O2 Delivery O2 Flow Rate FiO2 05/18/21 14:50 70 18 116/56 (76) 05/18/21 11:44 97.4 SARAN BARRAGAN MD May 18, 2021 16:14
[2021-05-18] MEDS ORDERED: EPIDURAL/PCA KEYS XX PRN (16:45)
[2021-05-18] MEDS ORDERED: FENTANYL/ROPIVACAINE/NACL BAG 100 ML EPIDURAL SCH (16:45)
[2021-05-18] MEDS ORDERED: diphenhydrAMINE 50MG/ML VIAL (J1200) IV PRN (16:45)
[2021-05-18] MEDS ORDERED: REFRIGERATOR IV KEYS XX PRN (16:45)
[2021-05-18] MEDS ORDERED: LACTATED RINGER'S 1000 ML IV PRN (16:45)
[2021-05-18] MEDS ORDERED: ePHEDrine SULFATE 25 MG/5 ML(5MG/ML) SYRINGE IV PRN (16:45)
[2021-05-18] MEDS ORDERED: ONDANSETRON 4MG/2ML VIAL IV PRN ×2 (16:45→21:30)
[2021-05-18] MEDS ORDERED: EPIDURAL COMMENT XX SCH (16:45)
[2021-05-18] MEDS ORDERED: NALOXONE INJ 0.4MG/1ML VIAL (J2310 PER 1MG) IV PRN (16:45)
[2021-05-18] MEDS ORDERED: OXYTOCIN 30 UNITS IN 0.9% NaCl 500ML IV BAG (J2590) As Ordered ONE (19:34)
[2021-05-18] MEDS ORDERED: OXYTOCIN DRIP 30 UNITS in IV 1 EA IV SCH (20:50)
[2021-05-18] MEDS ORDERED: OXYTOCIN DRIP 30 UNITS in IV 1 EA IV ONE (21:30)
[2021-05-18] MEDS ORDERED: ACETAMINOPHEN 500 MG TAB PO PRN (21:30)
[2021-05-18] MEDS ORDERED: DOCUSATE SODIUM 100MG CAPSULE PO PRN (21:30)
[2021-05-18] MEDS ORDERED: DIBUCAINE 1% OINTMENT 30GM TOP PRN (21:30)
[2021-05-18] MEDS ORDERED: MEASLES,MUMPS,RUBELLA VACCINE INJ (MMR-II) (90707) SC SCH (21:30)
[2021-05-18] MEDS ORDERED: ACETAMINOPHEN TAB 650MG DOSE (2X325MG) PO PRN (21:30)
[2021-05-18] MEDS ORDERED: METHYLERGONOVINE MALEATE 0.2 MG TAB PO PRN (21:30)
[2021-05-18] MEDS ORDERED: IBUPROFEN 800 MG TAB PO PRN (21:30)
[2021-05-18] MEDS ORDERED: IBUPROFEN 600MG TAB PO PRN (21:30)
[2021-05-18] MEDS ORDERED: LIDOCAINE 1% MDV 20ML VIAL INFIL ONE (21:30)
[2021-05-18] MEDS ORDERED: RHOGAM 300 MCG (1500 IU) INJ (J2790) IM SCH (21:30)
--- NOTE | 2021-05-18 21:35 | DNPDOC ---
[facility] Delivery Note Delivery Note DATE OF DELIVERY: May 18, 2021 PREDELIVERY DIAGNOSIS: 39-3/7 weeks' gestation, SROM, early labor. POST DELIVERY DIAGNOSIS: Delivered. PROCEDURE: Spontaneous vaginal delivery. TRANSITIONAL NURSE: Dr. Saran Barragan MD ANESTHESIA: epidural. ESTIMATED BLOOD LOSS: 300 mL. FINDINGS: 7 pound 0 ounce female infant, Score 8/9, nuchal cord times 1. DELIVERY SUMMARY: Patient is a 26-year-old 2 now para 0011 who was admitted to labor and delivery for SROM and early labor. After a 30 minute second stage of labor she had a spontaneous vaginal delivery of a 7 lb. 0 oz. female infant. A small midline episiotomy performed due to a narrow vaginal introitus. Nuchal cord x 1 reduced manually. Shoulders delivered with ease. Placenta delivered spontaneously and appeared intact. Pt received IV Pitocin immediately after delivery of the placenta. A second degree laceration repaired wit h2-O Chromic under local anesthesia in the usual fashion. Sponge and needle counts correct. SARAN BARRAGAN MD May 18, 2021 21:35
[2021-05-19 06:00] VITALS: BP 133/62
[2021-05-19] MEDS: PRENATAL VITAMINS CHEWABLE TABLET PO SCH (09:33)
--- NOTE | 2021-05-19 11:38 | IPNPDOC ---
Text Note Date of Service The patient was seen on 05/19/21. NOTE Post note S: No complaints. O: AVSS NAD Abd: NT, FF ext: NT A/P 26 yo PPD#1 s/p routine PP care VS,Fishbone, I+O VS, Fishbone, I+O Vital Signs Date Time Temp Pulse Resp B/P (MAP) Pulse Ox O2 Delivery O2 Flow Rate FiO2 05/19/21 06:00 97.6 90 18 133/62 (85) 96 Room Air I&O- Last 24 Hours up to 6 AM 05/19/21 05:59 Intake Total 4000 ml Output Total 450 ml Balance 3550 ml SARAN BARRAGAN MD May 19, 2021 11:38
[2021-05-19 17:44] VITALS: BP 120/71
[2021-05-20 06:00] VITALS: BP 139/77
[2021-05-20] MEDS: PRENATAL VITAMINS CHEWABLE TABLET PO SCH (08:34)
[2021-05-20] MEDS ORDERED: ACET-683 PO (12:11)
[2021-05-20] MEDS ORDERED: PRENCHW PO (12:11)
[2021-05-20] MEDS ORDERED: IBUP80TA PO (12:11)
== END 2021-05-20 18:18 | disposition home or self-care (01) | DRG 807 ==
LOC: M LDO 02:46 → M LDI 03:43 → M OBS 23:00
PROVIDERS: ADMIT Advanced Practice Midwife; ATTEND Advanced Practice Midwife
PROC: 10E0XZZ Delivery of Products of Conception, External Approach (ICD-10-PCS; principal; 2021-05-18)
PROC: 0KQM0ZZ Repair Perineum Muscle, Open Approach (ICD-10-PCS; 2021-05-18)
PROC: 0W8NXZZ Division of Female Perineum, External Approach (ICD-10-PCS; 2021-05-18)
DX: O69.82X0 Labor and delivery complicated by other cord entanglement, without compression, not applicable or unspecified (principal); Z37.0 Single live birth; Z3A.39 39 weeks gestation of pregnancy; O70.1 Second degree perineal laceration during delivery

== ENCOUNTER → 2022-12-17 | Outpatient (CLI) | payer OTHER ==
[~2022-12-17] MED LIST: ACET-683 PO; IBUP80TA PO; PRENCHW PO
[2022-12-17 17:36] LABS: HEMATOCRIT 42.1 % (36.0-47.0); HEMOGLOBIN 13.9 g/dl (12.0-15.5); MEAN CORPUSCULAR HEMOGLOBIN 28.3 pg (27.0-33.0); MEAN CORPUSCULAR VOLUME 85.7 fl (80.0-96.0); PLATELET COUNT, AUTOMATED 359 10^3/uL (150-450); RED BLOOD COUNT 4.91 10^6/uL (4.00-5.40); WHITE BLOOD COUNT 13.1 10^3/uL (4.0-10.0)
[2022-12-17 18:31] LABS: HIV 1&2 SCREEN NEGATIVE (NEGATIVE)
[2022-12-17 18:40] LABS: HEPATITIS C VIRUS ABY INDEX 0.08 INDEX (<0.8)
[2022-12-17 21:31] LABS: GC DNA AMPLIFICATION NEGATIVE (NEGATIVE)
== END ==
LOC: M PLALAB 14:14
PROVIDERS: ATTEND Obstetrics & Gynecology
DX: Z34.91 Encounter for supervision of normal pregnancy, unspecified, first trimester (principal)

== ENCOUNTER → 2023-01-07 | Outpatient (REF) | payer OTHER | LOC: M PLALAB 16:17 | PROVIDERS: ATTEND Obstetrics & Gynecology | DX: O09.292 Supervision of pregnancy with other poor reproductive or obstetric history, second trimester (principal); R82.90 Unspecified abnormal findings in urine; Z3A.15 15 weeks gestation of pregnancy | CPT/HCPCS: 87086; G0463 ==

== ENCOUNTER → 2023-02-04 | Outpatient (CLI) | payer OTHER | LOC: M WHC 14:18 | PROVIDERS: ATTEND Obstetrics & Gynecology | DX: O32.1XX0 Maternal care for breech presentation, not applicable or unspecified (principal); Z3A.19 19 weeks gestation of pregnancy | CPT/HCPCS: 76811; G0463 ==

== ENCOUNTER → 2023-04-02 | Outpatient (CLI) | payer OTHER ==
[2023-04-02 14:15] LABS: HEMATOCRIT 41.1 % (36.0-47.0); HEMOGLOBIN 13.4 g/dl (12.0-15.5); MEAN CORPUSCULAR HEMOGLOBIN 28.9 pg (27.0-33.0); MEAN CORPUSCULAR HGB CONC 32.6 g/dl (32.0-36.5); MEAN CORPUSCULAR VOLUME 88.6 fl (80.0-96.0); PLATELET COUNT, AUTOMATED 315 10^3/uL (150-450); RED BLOOD COUNT 4.64 10^6/uL (4.00-5.40); WHITE BLOOD COUNT 11.6 10^3/uL (4.0-10.0)
== END ==
LOC: M PLALAB 09:05
PROVIDERS: ATTEND Advanced Practice Midwife
DX: Z34.82 Encounter for supervision of other normal pregnancy, second trimester (principal)

== ENCOUNTER → 2023-04-16 | Outpatient (CLI) | payer OTHER | LOC: M LAB 06:25 | PROVIDERS: ATTEND Advanced Practice Midwife | DX: O99.810 Abnormal glucose complicating pregnancy (principal); Z3A.00 Weeks of gestation of pregnancy not specified ==

== ENCOUNTER → 2023-06-02 | Outpatient (CLI) | payer OTHER | LOC: M WHC 12:46 | PROVIDERS: ATTEND Obstetrics & Gynecology | DX: O26.613 Liver and biliary tract disorders in pregnancy, third trimester (principal); Z3A.36 36 weeks gestation of pregnancy; K83.1 Obstruction of bile duct ==

== ENCOUNTER → 2023-06-02 | Outpatient (REF) | payer OTHER | LOC: M PLALAB 12:20 | PROVIDERS: ATTEND Obstetrics & Gynecology | DX: Z36.85 Encounter for antenatal screening for Streptococcus B (principal); Z3A.36 36 weeks gestation of pregnancy ==

== ENCOUNTER → 2023-06-02 | Outpatient (CLI) | payer OTHER ==
[2023-06-02 13:13] LABS: HEMATOCRIT 40.6 % (36.0-47.0); HEMOGLOBIN 13.3 g/dl (12.0-15.5); MEAN CORPUSCULAR HEMOGLOBIN 27.7 pg (27.0-33.0); MEAN CORPUSCULAR HGB CONC 32.8 g/dl (32.0-36.5); MEAN CORPUSCULAR VOLUME 84.6 fl (80.0-96.0); PLATELET COUNT, AUTOMATED 303 10^3/uL (150-450); WHITE BLOOD COUNT 10.2 10^3/uL (4.0-10.0)
[2023-06-02 13:34] LABS: TOTAL PROTEIN,RANDOM URINE 10.7 MG/DL (0.0-14.0)
[2023-06-02 13:36] LABS: URIC ACID 5.6 MG/DL (3.1-7.8)
[2023-06-02 13:38] LABS: LDH LACTATE DEHYDROGENASE 144 U/L (120-246)
[2023-06-02 13:39] LABS: ALT/SGPT 120 U/L (7.0-40); AST/SGOT 43 U/L (<34); BILIRUBIN,TOTAL 0.4 MG/DL (0.3-1.2); CREATININE FOR GFR 0.45 MG/DL (0.55-1.30); GLOMERULAR FILTRATION RATE > 60.0 (>60)
== END ==
LOC: M PLALAB 11:19
PROVIDERS: ATTEND Obstetrics & Gynecology
DX: Z34.83 Encounter for supervision of other normal pregnancy, third trimester (principal)

== ENCOUNTER 2023-06-11 12:46 | Inpatient (IN) | payer OTHER ==
[~2023-06-11] VITALS: Ht 160 cm; Wt 1.0 kg
[2023-06-11 16:24] LABS: HEMATOCRIT 39.7 % (36.0-47.0); MEAN CORPUSCULAR HEMOGLOBIN 27.6 pg (27.0-33.0); MEAN CORPUSCULAR HGB CONC 32.7 g/dl (32.0-36.5); MEAN CORPUSCULAR VOLUME 84.3 fl (80.0-96.0); PLATELET COUNT, AUTOMATED 309 10^3/uL (150-450); RED BLOOD COUNT 4.71 10^6/uL (4.00-5.40); WHITE BLOOD COUNT 13.1 10^3/uL (4.0-10.0)
[2023-06-11] MEDS ORDERED: LACTATED RINGER'S 1000 ML IV STA (16:37)
[2023-06-11] MEDS ORDERED: OXYTOCIN DRIP 30 UNITS in IV 1 EA IV PRN (16:40)
[2023-06-11] MEDS ORDERED: CARBOPROST TROMETHAMINE 250 MCG/ML AMP IM PRN (16:40)
[2023-06-11] MEDS ORDERED: LR 1,000 ML IV SCH (16:40)
[2023-06-11] MEDS ORDERED: TRANEXAMIC ACID INJection 1,000 MG in NS 100 ML IV PRN (16:40)
[2023-06-11] MEDS ORDERED: METHYLERGONOVINE MALEATE 0.2MG/ML 1ML VIAL IM PRN (16:40)
[2023-06-11] MEDS ORDERED: LIDOCAINE 1% MDV 20ML VIAL INFIL PRN (16:40)
[2023-06-11] MEDS: miSOPROStol 50MCG 1/2 TABLET PO SCH ×2 (17:09→23:30)
[2023-06-11] MEDS ORDERED: PEPC40TA12 PO (18:46)
[2023-06-11] MEDS ORDERED: HOME MED LIST COMPLETE! XX SCH (18:50)
[2023-06-11 19:14] VITALS: BP 134/83
[2023-06-11] MEDS ORDERED: BUTORPHANOL 2 MG/ML 1ML VIAL IV ONE (23:00)
[2023-06-11] MEDS ORDERED: PROMETHAZINE 25MG/ML 1ML VIAL IV ONE (23:00)
[2023-06-11 23:07] VITALS: BP 115/69
[2023-06-12 02:15] VITALS: BP 121/74
[2023-06-12] MEDS: miSOPROStol 50MCG 1/2 TABLET PO SCH (04:00)
[2023-06-12 06:35] VITALS: BP 135/77
[2023-06-12] MEDS ORDERED: LR 1,000 ML IV SCH (08:55)
[2023-06-12] MEDS ORDERED: OXYTOCIN DRIP 30 UNITS in IV 1 EA IV SCH (08:55)
[2023-06-12] MEDS ORDERED: LR 500 ML IV PRN (11:20)
[2023-06-12] MEDS ORDERED: EPIDURAL/PCA KEYS XX PRN (11:20)
[2023-06-12] MEDS ORDERED: FENTANYL/ROPIVACAINE/NACL BAG 100 ML EPIDURAL SCH (11:20)
[2023-06-12] MEDS ORDERED: NALOXONE INJ 0.4MG/1ML VIAL IV PRN (11:20)
[2023-06-12] MEDS ORDERED: ONDANSETRON 4MG 2ML VIAL IV PRN (11:20)
[2023-06-12] MEDS ORDERED: diphenhydrAMINE 50MG/ML VIAL IV PRN (11:20)
[2023-06-12] MEDS ORDERED: ePHEDrine SULFATE 25 MG/5 ML(5MG/ML) SYRINGE IVP PRN (11:20)
[2023-06-12] MEDS ORDERED: OXYTOCIN INJ 10UNITS/ML 1ML VIAL As Ordered ONE (12:37)
[2023-06-12] MEDS ORDERED: OXYTOCIN INJ 10UNITS/ML 1ML VIAL IM ONE (12:45)
[2023-06-12] MEDS ORDERED: DIBUCAINE 1% OINTMENT 30GM TOP PRN (13:05)
[2023-06-12] MEDS ORDERED: METHYLERGONOVINE MALEATE 0.2 MG TAB PO PRN (13:05)
[2023-06-12] MEDS ORDERED: ACETAMINOPHEN 500 MG TAB PO PRN (13:05)
[2023-06-12] MEDS ORDERED: IBUPROFEN 600MG TAB PO PRN (13:05)
[2023-06-12] MEDS ORDERED: ANUSOL HC CREAM 30GM TOP PRN (13:05)
[2023-06-12] MEDS ORDERED: DOCUSATE SODIUM 100MG CAPSULE PO PRN (13:05)
[2023-06-12] MEDS ORDERED: RHOGAM 300MCG (1500IU) INJ IM SCH (13:05)
[2023-06-12] MEDS ORDERED: IBUPROFEN 800 MG TAB PO PRN (13:05)
[2023-06-12 16:04] VITALS: O2SAT 72
[2023-06-12] MEDS ORDERED: CALCIUM CARBONATE 500 MG CHEW U/D PO PRN (16:30)
[2023-06-12 18:00] VITALS: BP 131/75; O2SAT 97
[2023-06-12] MEDS: ACETAMINOPHEN TAB 650MG DOSE (2X325MG) PO PRN (18:48)
[2023-06-13] MEDS: ACETAMINOPHEN TAB 650MG DOSE (2X325MG) PO PRN (01:11)
[2023-06-13 06:00] VITALS: BP 102/62; O2SAT 98
[2023-06-13] MEDS ORDERED: PRENATAL VITAMINS CHEWABLE TABLET PO SCH (09:00)
[2023-06-13] MEDS ORDERED: IBUP-1022 PO (15:16)
[2023-06-14] MEDS ORDERED: MEASLES,MUMPS,RUBELLA VACCINE INJ (MMR-II) SC.IMMUN ONE (09:00)
== END 2023-06-13 16:00 | disposition home or self-care (01) | DRG 805 ==
LOC: M LDI 12:46 → M OBS 06-12 15:15
PROVIDERS: ADMIT Obstetrics & Gynecology; ATTEND Obstetrics & Gynecology
PROC: 3E0P7VZ Introduction of Hormone into Female Reproductive, Via Natural or Artificial Opening (ICD-10-PCS; 2023-06-11)
PROC: 10E0XZZ Delivery of Products of Conception, External Approach (ICD-10-PCS; principal; 2023-06-12)
PROC: 3E033VJ Introduction of Other Hormone into Peripheral Vein, Percutaneous Approach (ICD-10-PCS; 2023-06-12)
PROC: 0HQ9XZZ Repair Perineum Skin, External Approach (ICD-10-PCS; 2023-06-12)
DX: O26.62 Liver and biliary tract disorders in childbirth (principal); Z37.0 Single live birth; K83.1 Obstruction of bile duct; Z3A.37 37 weeks gestation of pregnancy; O32.6XX0 Maternal care for compound presentation, not applicable or unspecified; O70.0 First degree perineal laceration during delivery